=== PATIENT | female | born 1995 | race Caucasian/White ===

== ENCOUNTER 2016-11-20 12:50 | Emergency (ER) ==
[2016-11-20 13:10] VITALS: BP 106/72; TEMP 97.7; BMI 32.5
--- NOTE | 2016-11-20 13:35 | ED.PDOC ---
General ED Provider: Dr. GARETT KAPLAN Chief Complaint: Sore Throat Stated Complaint: sore throat Time Seen by Physician: 13:10 (seen with staff at all times ) Mode of Arrival: Walk-In Information Source: Patient Exam Limitations: No limitations Nursing and Triage Documentation Reviewed and Agree: Yes EENT Complaint Exam - Throat Complaint/Exam Symptoms Are: Still present Timimg: Constant Initial Severity: Moderate Current Severity: Moderate Aggravating: Reports: None Alleviating: Reports: None Associated Signs and Symptoms: Denies: Fever, Dysphagia, Drooling, Foreign body sensation, Chills, Cough, Wheezing, Hoarseness, Sinus discomfort, Nasal congestion, Difficulty breathing, Lethargy, Irritability, Decreased activity, Vomiting, Diarrhea, Decreased hearing, Ear drainage Uvula Midline: Yes Lety-tonsillar Fluctuence: No Scarlatinaform Rash Present: No Stridor Present: No Sinus Tenderness Present: No Tonsillar Hypertrophy Present: No Tonsillar Exudate Present: No Lety-tonsillar Swelling Present: No Adenopathy Present: No Splenomegaly Present: No Review of Systems - Review Of Systems Constitutional: Reports: No symptoms Eyes: Reports: No symptoms Ears, Nose, Mouth, Throat: Reports: Throat pain Respiratory: Reports: No symptoms Cardiac: Reports: No symptoms GI: Reports: No symptoms : Reports: No symptoms Musculoskeletal: Reports: No symptoms Skin: Reports: No symptoms Neurological: Reports: No symptoms Endocrine: Reports: No symptoms Hematologic/Lymphatic: Reports: No symptoms All Other Systems: Reviewed and Negative Past Medical History - Past Medical History Previously Healthy: Yes Endocrine: Reports: None Cardiovascular: Reports: None Respiratory: Reports: None Hematological: Reports: None Gastrointestinal: Reports: None Genitourinary: Reports: None Neuro/Psych: Reports: None Musculoskeletal: Reports: None Cancer: Reports: None Last Menstrual Period: 10/31/16 - Surgical History General Surgical History: Reports: None - Family History Family History: Reports: None - Social History Smoking Status: Current some day smoker Hx Substance Use: No Alcohol Screening: None - Immunizations Tetanus Shot up to Date: Yes Physical Exam - Physical Exam Appearance: Well-appearing, No pain distress, Well-nourished Eyes: TRISTON, EOMI, Conjunctiva clear ENT: Erythema, Exudate Respiratory: Airway patent, Breath sounds clear, Breath sounds equal, Respirations nonlabored Cardiovascular: RRR, Pulses normal, No rub, No murmur GI/: Soft, Nontender, No masses, Bowel sounds normal, No Organomegaly Musculoskeletal: Normal strength, ROM intact, No edema, No calf tenderness Skin: Warm, Dry, Normal color Neurological: Sensation intact, Motor intact, Reflexes intact, Cranial nerves intact, Alert, Oriented Psychiatric: Affect appropriate, Mood appropriate Critical Care Note - Critical Care Note Total Time (mins): 0 Course - Course Vital Signs: Temp Pulse Resp BP Pulse Ox 11/20/16 13:06 97.7 F 91 H 20 106/72 98 Departure - Departure Time of Disposition: 13:35 Disposition: HOME SELF-CARE Discharge Problem: Sore throat symptom Instructions: Strep Throat (ED), Pharyngitis (ED) Condition: Good Pt referred to PMD for follow-up: Yes Additional Instructions: Please call your Family Physician as soon as possible to schedule a follow-up appointment. Allergies/Adverse Reactions: Allergies acetaminophen [From Fioricet] Adverse Reaction (Verified 11/20/16 13:11) amoxicillin [From Augmentin] Adverse Reaction (Verified 11/20/16 13:11) butalbital [From Fioricet] Adverse Reaction (Verified 11/20/16 13:11) caffeine [From Fioricet] Adverse Reaction (Verified 11/20/16 13:11) clavulanic acid [From Augmentin] Adverse Reaction (Verified 11/20/16 13:11) Home Medications: Ambulatory Orders Fluoxetine HCl [Prozac] 75 mg PO DAILY 11/20/16
== END 2016-11-20 13:56 | disposition home or self-care (01) ==
LOC: ED 12:50
DX: J02.9 Acute pharyngitis, unspecified (principal); F17.210 Nicotine dependence, cigarettes, uncomplicated
CPT/HCPCS: 99282